=== PATIENT | male | born 1935 | race Caucasian/White ===

== ENCOUNTER 2016-12-05 11:04 | Emergency (ER) | payer MEDICARE, OTHER ==
--- NOTE | 2016-12-05 11:35 | Diagnostic Imaging Report ---
CHEST X-RAY: AP view INDICATION: pain COMPARISON: None FINDINGS: Findings of CHF are seen with bilateral effusions and infiltrates. Left chest wall pacemaker is noted with leads in the region of the right atrium and right ventricle. There is evidence of prior median sternotomy. Mild cardiomegaly is noted. Degenerative changes of the spine are noted. IMPRESSION: CHF with bilateral effusions and infiltrates. Underlying pneumonia cannot be excluded. Mild cardiomegaly is noted with atherosclerotic vascular disease Postsurgical changes.
[2016-12-05 11:50] LABS: % BASOPHILS 0.8 % (0.0-2.0); % EOSINOPHILS 8.4 % (0.0-5.0); % LYMPHOCYTES 27.3 % (20.0-50.0); % MONOCYTES 5.4 % (2.0-10.0); % NEUTROPHILS 58.1 % (40.0-80.0); HEMATOCRIT 33.5 % (39.0-49.0); HEMOGLOBIN 11.3 gm/dL (12.6-17.4); MEAN CELL VOLUME 88.8 fl (80-99); MEAN CORPUSCULAR HGB CONC 33.8 pg (28.0-36.0); MEAN PLATELET VOLUME 8.2 fl; NEUTROPHILE ABSOLUTE 5.2 Th/cmm (1.8-8.0); PLATELET COUNT 102 Th/cmm (150-400); RED BLOOD COUNT 3.77 Mil/cmm (3.80-5.80); RED CELL DISTRIBUTION WIDTH 15.4 % (11.5-20.0); WHITE BLOOD COUNT 9.1 Th/cmm (4.8-10.8)
[2016-12-05 12:01] LABS: INR 1.02 (0.5-1.4); PROTHROMBIN TIME (TEST) 10.6 SECONDS (9.5-11.5)
[2016-12-05 12:03] LABS: ALB/GLOB RATIO 1.3 (1.0-1.8); ALKALINE PHOSPHATASE 51 U/L (34-104); BILIRUBIN,TOTAL 0.5 mg/dL (0.3-1.0); BUN - UREA NITROGEN 35 mg/dL (7-25); BUN/CREATININE RATIO 17.5; CALCIUM SERUM 9.2 mg/dL (8.6-10.3); CHLORIDE 106 mEq/L (98-107); CHOLESTEROL 118 mg/dL (<200); GLUCOSE 146 mg/dL (70-105); SGOT 16 U/L (13-39); SGPT/ALT 9 U/L (7-52); SODIUM SERUM 140 mEq/L (136-145); TRIGLYCERIDES 70 mg/dL (<150)
--- NOTE | 2016-12-05 12:05 | Diagnostic Imaging Report ---
Head CT without intravenous contrast Indication: Weakness Comparison: None Technique: Axial images were obtained from the vertex to the skull base without IV contrast. Coronal reconstructions were made. Total DLP: 680, [id number] FINDINGS: Images of the brain obtained without contrast demonstrate old infarcts throughout the right cerebral hemisphere with large area of encephalomalacia seen involving the right cerebral hemisphere greatest along the right temporal lobe extending into the basal ganglia regions. There is no evidence of an acute hemorrhage. No evidence of hydrocephalus. The basal cisterns are patent. No mass effect or midline shift. Atherosclerosis is noted. Assessment for skull fractures limited due to motion however no gross skull fracture identified. No significant focal soft tissue swelling. The visualized paranasal sinuses demonstrate mucosal thickening. 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 No evidence of an acute hemorrhage. Atrophy Atherosclerotic vascular disease. If indicated follow MRI examination also be obtained.
--- NOTE | 2016-12-05 12:30 | ED Physician Chart ---
Chief Complaint/HPI - Patient Information Date Seen:: 12/05/16 Time Seen:: 12:23 Chief Complaint:: INCREASE LEFT SIDED WEAKNESS History of Present Illness:: THIS IS A CHRONICALLY ILL 81 YO MALE SENT HERE FOR AN EVALUATION OF INCREASED LEFT LOWER EXTREMITY WEAKNESS AND LOSS OF ROM. HE HAD A STROKE NINE YRS AGO AND SINCE THEN HE HAS HAD SIGNIFICANT WEAKNESS AND MUSCLE WASTING ON ALL FOUR EXTREMITIES. HE DENIES CHEST PAIN AND ABDOMINAL PAIN TODAY. Allergies:: Allergies Allergy/AdvReac Type Severity Reaction Status Date / Time niacin Allergy Verified 12/05/16 11:11 NSAIDS (Non-Steroidal Allergy Verified 12/05/16 11:11 Anti-Inflamma oxycodone Allergy Verified 12/05/16 11:11 Vitals:: Vital Signs - 8 hr 12/05/16 11:12 Temp 98.2 F HR 59 RR 18 BP 157/72 O2 Sat % 97 Historian:: Patient, Medical Records Review:: Nurse's Note Reviewed, Transfer documents Reviewed Review of Systems - Review of Systems General/Constitutional: No fever, No chills, No weight loss, No weakness, No diaphoresis, No edema, No loss of appetite Skin: No skin lesions, No rash, No bruising Head: No headache, No light-headedness Eyes: No loss of vision, No pain, No diplopia ENT: No earache, No nasal drainage, No sore throat, No tinnitus Neck: No neck pain, No swelling, No thyromegaly, No stiffness, No mass noted Cardio Vascular: No chest pain, No palpitations, No PND, No orthopnea, No edema Pulmonary: No SOB, No cough, No sputum, No wheezing GI: No nausea, No vomiting, No diarrhea, No pain, No melena, No hematochezia, No constipation, No hematemesis G/U: No dysuria, No frequency, No hematuria Musculoskeletal: No bone or joint pain, No back pain, No muscle pain Endocrine: No polyuria, No polydipsia Psychiatric: No prior psych history, No depression, No anxiety, No suicidal ideation Hematopoietic: No bruising, No lymphadenopathy Allergic/Immuno: No urticaria, No angioedema Neurological: No syncope, Focal symptoms (LEFT LOWER EXTREMITY WEAKNESS), Weakness, No paresthesia, No headache, No seizure, No dizziness, No confusion, No vertigo Past Medical History - Past Medical History Obtainable: Yes Past Medical History: HTN, CAD, CHF, CVA/TIA, Dementia Family History: None Social History: Non Smoker, No Alcohol, No Drug Use, Care Facility Surgical History: CABG, Pacemaker Psychiatricy History: None Medication: Reviewed Family Medical History - Family Member Mother History Unknown: Yes Physical Exam - Physical Examination General/Constitutional: Awake, Well-developed, well-nourished, Alert, No distress, GCS 15, Non-toxic appearing, Ambulatory Head: Atraumatic Eyes: Lids, conjuctiva normal, PERRL, EOMI Skin: Nl inspection, No rash, No skin lesions, No ecchymosis, Well hydrated, No lymphadenopathy ENMT: External ears, nose nl, Nasal exam nl, Lips, teeth, gums nl Neck: Nontender, Full ROM w/o pain, No JVD, No nuchal rigidity, No bruit, No mass, No stridor Respiratory: Nl effort/Exclusion, Clear to Auscultation, No Wheeze/Rhonchi/Rales Cardio Vascular: RRR, No murmur, gallop, rubs, NL S1 S2 GI: No tenderness/rebounding/guarding, No organomegaly, No hernia, Normal BS's, Nondistended, No mass/bruits, No McBurney tenderness : No CVA tenderness Extremities: No tenderness or effusion, Full ROM, normal strength in all extremities, No edema, Normal digits & nails Neuro/Psych: Alert/oriented, DTR's symmetric, Normal sensory exam, Judgement/ insight normal, Mood normal, Normal gait Other Neuro/Psych comments:: LEFT UPPER AND LOWER EXTREMITIES ARE WEAKNESS WITH ALL FOUR EXTREMITIES MUSCLE WASTING. Misc: normal gait, Normal back, No paraspinal tenderness Labs/Radiology/EKG Results - Lab Results Results: Laboratory Tests 12/05/16 12/05/16 12/05/16 11:35 11:35 11:35 WBC 9.1 RBC 3.77 L Hgb 11.3 L Hct 33.5 L MCV 88.8 MCH 30.0 MCHC Differential 33.8 RDW 15.4 Plt Count 102 L MPV 8.2 Neutrophils % 58.1 Lymphocytes % 27.3 Monocytes % 5.4 Eosinophils % 8.4 H Basophils % 0.8 Sodium 140 Potassium 4.0 Chloride 106 Carbon Dioxide 29.0 Anion Gap 9.0 BUN 35 H Creatinine 2.0 H Est GFR ( Amer) TNP Est GFR (Non-Af Amer) TNP BUN/Creatinine Ratio 17.5 Glucose 146 H Calcium 9.2 Total Bilirubin 0.5 AST 16 ALT 9 Alkaline Phosphatase 51 Total Protein 6.3 Albumin 3.6 L Globulin 2.7 Albumin/Globulin Ratio 1.3 Triglycerides 70 Cholesterol 118 LDL Cholesterol Direct 63 L HDL Cholesterol 43 - Radiology Results Results: Abnormal Lab Results 12/05/16 12/05/16 12/05/16 11:35 11:35 11:35 WBC 9.1 RBC 3.77 L Hgb 11.3 L Hct 33.5 L MCV 88.8 MCH 30.0 MCHC Differential 33.8 RDW 15.4 Plt Count 102 L MPV 8.2 Neutrophils % 58.1 Lymphocytes % 27.3 Monocytes % 5.4 Eosinophils % 8.4 H Basophils % 0.8 PT 10.6 INR 1.02 Sodium Potassium Chloride Carbon Dioxide Anion Gap BUN Creatinine Est GFR ( Amer) Est GFR (Non-Af Amer) BUN/Creatinine Ratio Glucose Calcium Total Bilirubin AST ALT Alkaline Phosphatase Troponin I Total Protein Albumin Globulin Albumin/Globulin Ratio Triglycerides 70 Cholesterol 118 LDL Cholesterol Direct 63 L HDL Cholesterol 43 TSH 12/05/16 12/05/16 12/05/16 11:35 11:35 11:35 WBC RBC Hgb Hct MCV MCH MCHC Differential RDW Plt Count MPV Neutrophils % Lymphocytes % Monocytes % Eosinophils % Basophils % PT INR Sodium 140 Potassium 4.0 Chloride 106 Carbon Dioxide 29.0 Anion Gap 9.0 BUN 35 H Creatinine 2.0 H Est GFR ( Amer) TNP Est GFR (Non-Af Amer) TNP BUN/Creatinine Ratio 17.5 Glucose 146 H Calcium 9.2 Total Bilirubin 0.5 AST 16 ALT 9 Alkaline Phosphatase 51 Troponin I 0.03 Total Protein 6.3 Albumin 3.6 L Globulin 2.7 Albumin/Globulin Ratio 1.3 Triglycerides Cholesterol LDL Cholesterol Direct HDL Cholesterol TSH 1.06 - EKG Interpretations EKG Time:: 11:29 Rate & Rhythm: 64, SINUS Nelson: LEFT Assessment - Assessment General Assessment: THE CT SCAN DID NOT SHOW ANY SIGNIFICANT CHANGES IN THE BRAIN BUT REVEALED LOTS OF CHANGES. THE PATIENT SHOULD BE EXAMINED BY A NEUROLOGIST. ED Septic Shock - . Is Septic Shock (SBP<90, OR Lactate>4 mmol\L) present?: No - <6hrs of presentation: Vital Signs: Vital Signs - 8 hr 12/05/16 11:12 Temp 98.2 F HR 59 RR 18 BP 157/72 O2 Sat % 97 Reassessment (Disposition) - Reassessment Reassessment Condition:: Unchanged - Diagnosis Diagnosis:: TIA RENAL FAILURE CORONARY HEART DISEASE - Patient Disposition Discharge/Transfer:: Acute Care w/in this hosp Time Responded:: 01:00 Admitting Medical Physician:: Manolo Mcgregor
[2016-12-05 13:34] LABS: URINE BILIRUBIN NEGATIVE (NEGATIVE); URINE COLOR YELLOW; URINE GLUCOSE (UA) 100 mg/dL (NEGATIVE); URINE KETONE NEGATIVE (NEGATIVE)
[2016-12-05 13:35] LABS: URINE BLOOD TRACE (NEGATIVE); URINE PROTEIN 30 mg/dL (NEGATIVE); URINE UROBILINOGEN 0.2 E.U./dL (0.2 - 1.0)
[2016-12-05 14:29] LABS: URINE WBC 25-50 /hpf (0-5)
[2016-12-05 14:30] LABS: URINE BACTERIA FEW /hpf (NONE SEEN); URINE EPITHELIAL CELLS NONE SEEN /lpf (FEW)
[2016-12-05] MEDS ORDERED: guaiFENesin 200 MG/10 ML UDC PO PRN (15:23)
[2016-12-05] MEDS ORDERED: Albuterol Nebulizer 2.5mg/3mL HHN PRN (15:23)
[2016-12-05] MEDS ORDERED: Ipratropium Neb 0.5 mg/2.5 mL UD IH PRN (15:23)
[2016-12-05] MEDS ORDERED: Sodium Chloride 0.45% 1,000 ML IV SCH (15:30)
[2016-12-05] MEDS ORDERED: Levofloxacin 500mg/100mL 500 MG/100 ML BAG IV SCH (15:30)
[2016-12-05] MEDS ORDERED: INSULIN ASPART, RECOMBINANT 100 UNITS/ML SUBQ SCH (16:30)
--- NOTE | 2016-12-05 16:35 | Admit Criteria Form ---
Admit Criteria Forms - Admit Criteria Diagnosis: TRANSIENT ISCHEMIC ATTACK (TIA) Clinical Indications for Admission to Inpatient Care (Place 'X' for any and all applicable criteria): Admission is indicated for ANY ONE of the following(1)(2)(3)(4)(5): [ ]I. Immediate inpatient procedure is needed (eg, endarterectomy). [X]II. Inpatient admission required rather than observation care (Also use Transient Ischemic Attack (TIA): Observation Care Criteria as appropriate) because of ANY ONE of the following: [X]a) Focal neurologic signs or symptoms persist or recurring [ ]b) Cardiac arrhythmias of immediate concern [ ]c) Clinically significant cardiac disorder identified that requires inpatient care (eg, severe valvular disease, atrial myxoma, cardiomyopathy) [ ]d) Hypertension requiring inpatient treatment [ ]e) Parenteral anticoagulation required (eg, alternative forms of anticoagulation not appropriate or not feasible) as indicated by ALL of the following(13): [ ]i) Temporary subtherapeutic anticoagulation unacceptable because of high risk of short-term venous or arterial thromboembolism due to ANY ONE of the following(14)(15)(16): [ ]1) Atrial fibrillation suspected as etiology of TIA(17)(18)(19)(20)(21) [ ]2) Venous thromboembolism within past 12 months [ ]3) Underlying malignancy [ ]4) Patient with mechanical cardiac valve(22)( 23) [ ]5) Underlying hypercoagulable state (eg, protein C or protein S deficiency antithrombin deficiency, antiphospholipid antibodies) [ ]6) Patient at temporary high risk of thromboembolism (eg, status post orthopedic surgery) [ ]ii) Contraindications to outpatient use of "bridging" agent or alternative oral anticoagulant[B] as indicated by ALL of the following: [ ]1) Contraindication to outpatient use of low- molecular-weight heparin as "bridging" agent as indicated by ANY ONE of the following(15): [ ]A. Documented current or history of heparin-induced thrombocytopenia(24) [ ]B. Severe thrombocytopenia (eg, platelet count less than 50,000/mm3 (62i123/L) [ ]C. Documented allergy to heparin, low- molecular-weight heparin, or pork products [ ]D. Renal failure (creatinine clearance less than 30 mL/min/1.73m2 (0.50mL/sec/1.73m2) or on dialysis) [ ]E. Inability to manage self-injection ( eg, by patient, caregiver, or visiting nurse) [ ]2) Contraindication to outpatient use of fondaparinux as "bridging" agent as indicated by ANY ONE of the following(25)(26)(27)(28 ): [ ]A. Severe thrombocytopenia (eg, platelet count less than 50,000/mm3 (50 x109/L)) [ ]B.Hypersensitivity to fondaparinux, related drugs, or product components [ ]C.Renal failure (creatinine clearance less than 30 mL/min/1.73m2 (0.50mL/sec/1.73m2) or on dialysis) [ ]D.Inability to manage self-injection ( eg, by patient, caregiver, or visiting nurse [ ]3. Oral direct thrombin inhibitor (eg, dabigatran) or oral coagulation factor Xa inhibitor (eg, rivaroxaban, apixaban) not appropriate as oral anticoagulation (eg, indication not appropriate) or contraindicated (eg, hypersensitivity, creatinine clearance less than 15 mL/min/1.73m2 ( 0.25 mL/sec/1.73m2) or on dialysis). [ ]f) Continuous IV infusion of anticoagulant, platelet inhibitor, vasoactive or antiarrhythmia(18)(19) [ ]g) Other condition, treatment, or monitoring requiring inpatient admission [ ]III. Contraindications and/or Inappropriate clinical situations for Observational Care in patients with Transient Ischemic Attack (TIA), when ANY ONE of the following is required: [ ]a) Patient with persistent or severe neurological deficit 24 [ ]b) Patient with acute CVA or other identified pathology should be admitted to inpatient for further care 25 [ ]IV. General contraindications and/or Inappropriate clinical situations for Observational Care in patients with Transient Ischemic Attack, when ANY ONE of the following is required: [ ]a) Prediction of prolongation of LOS based on ANY ONE of the following may be considered as a contraindication for observational care 2, 3, 4, 5, 6, 7, 8, 9, 10, 11 [ ]i) Age > 65 yrs. [ ]ii) Patient arriving by ambulance [ ]iii) Patient with high acuity [ ]iv) Patient requiring vital sign monitoring [ ]v) Patient on IV medication [ ]b) Systolic blood pressures 180mmHg 3,12 [ ]c) Patient with altered mental status including delirium and other alteration of consciousness, (3) [ ]d) Patient whose discharge disposition will be to a half-way home or rehabilitation home should not be managed in Emergency Department Observation Unit. CMS rule requires 3 days hospital stay before such placement.3,13 [ ]e) Patient with failure to thrive due to broad array of etiologies 3,16,17 [ ]f) Inability to ambulate 3,14 Extended stay beyond goal length of stay may be needed for(4)(30)(32): [ ]a) Parenteral anticoagulation required [ ]b) Dangerous arrhythmia [ ]c) Cardiac valvular disorder, atrial myxoma, cardiomyopathy [ ]d) Uncontrolled severe hypertension [ ]e) Severe carotid stenosis [ ]f) Active comorbidities (eg, heart failure) [ ]g) Extracranial vertebrobasilar disease(29) [ ]h) Clinical evolution of TIA into cerebrovascular accident (stroke) The original giddy content created by [employer] has been revised. The portions of thecontent which have been revised are identified through the use of italic text or in bold, and [facility] has neither reviewed nor approved the modified material. All other unmodified content is copyright [employer]iddy. Please see references footnoted in the original giddy edition 2016
[2016-12-05] MEDS ORDERED: LAMOTRIGINE 100 MG PO SCH (17:00)
--- NOTE | 2016-12-05 19:58 | History & Physical ---
ADMIT DATE: 12/05/2016 CHIEF COMPLAINT: Generalized weakness, status post fall, not feeling well. HISTORY OF PRESENT ILLNESS: This is an 81-year-old male with history of CAD status post pacemaker, history of stroke, multi-infarct dementia, diabetes, hypertension, who was admitted from [facility] and care secondary to generalized weakness. The patient had episode of fall with laceration in the left cheek. The patient is a poor historian and confused, unable to provide a meaningful history and review of systems. The patient was brought into the ER and admitted for further management. PAST MEDICAL HISTORY: As mentioned in history present illness. PAST SURGICAL HISTORY: Status post pacemaker. ALLERGIES: Per chart, no known drug allergies. MEDICATIONS: Please see medication list. FAMILY HISTORY: ____. SOCIAL HISTORY: The patient is a poor historian. Denies smoking and drinking. REVIEW OF SYSTEMS: This is limited secondary to the patient's current mental state. We will try to obtain more detailed review of systems at a later date by talking to family members, ____, sister Maria Antonia ____, number [phone]. Also, I will try to get information from the facility where the patient came from, number [phone]. PHYSICAL EXAMINATION: VITAL SIGNS: Blood pressure ____, respirations 18, pulse 80, temperature 98.7. GENERAL: Elderly male with bilateral temporal wasting, appears chronically ill. HEENT: Does have a laceration in the left cheek. NECK: Supple. LUNGS: Decreased breath sounds, few rhonchi. HEART: Regular rate and rhythm with systolic ejection murmur. ABDOMEN: Soft, nontender, positive bowel sounds. EXTREMITIES: Positive excoriations ____. NEUROLOGIC: Limited, unable to perform cranial, motor and sensory exam. During examination, gait not seen. LABORATORY DATA: Hemoglobin 10. UA showed many bacteria, positive wbc of 50. CT of the head showed right-sided infarction. Chest x-ray showed possible CHF. ASSESSMENT AND PLAN: Urinary tract infection, coronary artery disease, status post pacemaker, generalized weakness, history of stroke, multi-infarct dementia, ____ fall, left cheek laceration, diabetes, hypertension, anemia. We will continue the patient on gentle hydration. We will continue IV antibiotic. We will work on the patient ____ neurologically. We will monitor renal function, although pending diuretic at this time. We will place the patient on fall precaution. We will continue to monitor the patient. [facility]# [id number]
[2016-12-05] MEDS ORDERED: TERAZOSIN HCL 2 MG PO SCH (21:00)
[2016-12-06] MEDS ORDERED: PRAVASTATIN SODIUM 20 MG PO SCH (09:00)
[2016-12-06] MEDS ORDERED: Ferrous Sulfate 325 MG TAB PO SCH (09:00)
[2016-12-06] MEDS ORDERED: Fish Oil 1,000 MG SGL PO SCH (09:00)
[2016-12-06] MEDS ORDERED: FATTY ACIDS PO SCH (09:00)
[2016-12-06] MEDS ORDERED: Vitamin B Complex w/Vitamin C Tab PO SCH (09:00)
[2016-12-06] MEDS ORDERED: OMEGA PO SCH (09:00)
== END 2016-12-05 18:12 | disposition short-term general hospital (02) ==
LOC: ER 11:04 → MSI 15:34 → UNDOADMIN 15:34 → ER 18:12
DX: G45.9 Transient cerebral ischemic attack, unspecified (principal); I13.0 Hypertensive heart and chronic kidney disease with heart failure and stage 1 through stage 4 chronic kidney disease, or unspecified chronic kidney disease; N18.9 Chronic kidney disease, unspecified; I50.9 Heart failure, unspecified; I25.9 Chronic ischemic heart disease, unspecified; I25.10 Atherosclerotic heart disease of native coronary artery without angina pectoris; Z95.1 Presence of aortocoronary bypass graft; Z95.0 Presence of cardiac pacemaker; Z88.8 Allergy status to other drugs, medicaments and biological substances; Z88.6 Allergy status to analgesic agent
CPT/HCPCS: 99285; 93005; 71010; 70450; 84484; 36415; 84443; 86592; 85025; 85610; 81001; 80053; 80061; 87040 ×2; J1815; J1956; Z7610